=== PATIENT | male | born 1950 | race Caucasian/White ===

== ENCOUNTER 2019-04-10 08:12 | Outpatient (RCR) | payer MEDICARE, MEDICAID ==
--- NOTE | 2019-04-10 10:27 | RADONC ---
RADIATION ONCOLOGY RADIATION ONCOLOGY SIMULATION NOTE DATE OF SERVICE: 04/10/2019 CHART NUMBER: [id number]. SIMULATION NOTE: Mr. Sparks was taken to the CT scan for CT simulation of his prostate field. CT was accomplished without difficulty or discomfort. Radiation treatment planning is underway, and radiation treatments will begin subsequently. An immobilization device was created without difficulty or discomfort. It will be used throughout the course of treatment. I was physically present throughout the course of CT simulation.
[2019-04-10 10:41] LABS: HEMATOCRIT 54.1 % (42.0-52.0); HEMOGLOBIN 17.9 g/dl (13.5-17.5); LYMPH % 29.4 % (24.0-44.0); MEAN CORPUSCULAR HEMOGLOBIN 31.3 pg (27.0-33.0); MEAN CORPUSCULAR HGB CONC 33.1 g/dl (32.0-36.5); MEAN CORPUSCULAR VOLUME 94.7 fl (80.0-96.0); NEUTROPHILS # 4.1 10^3/uL (1.8-7.7); NEUTROPHILS % 58.8 % (36.0-66.0); RED BLOOD COUNT 5.71 10^6/uL (4.30-6.10)
== END 2019-04-13 ==
LOC: M ONCR 08:12
PROVIDERS: ATTEND Radiology Radiation Oncology
DX: C61 Malignant neoplasm of prostate (principal)

== ENCOUNTER 2019-05-11 10:36 | Outpatient (RCR) | payer MEDICARE, MEDICAID ==
--- NOTE | 2019-04-24 06:43 | RADONC ---
RADIATION ONCOLOGY PROGRESS NOTE DATE: 04/23/2019 CHART NUMBER: [id number] Mr. Sparks is presently dose of 540 cGy to his prostate and is tolerating treatments quite well at this point with no complaints related to his radiation therapy. He is having no urinary or bowel difficulties and no bone pain. REVIEW OF SYSTEMS: The patient's review of systems is noncontributory. He denies nausea, vomiting, fevers, chills, night sweats, diplopia, headaches, anxiety or depression, anorexia, weight loss, visual disturbances, chest pain, urinary or bowel difficulties, bone pain or neurological problems. PHYSICAL EXAMINATION: The patient's skin is in good condition with no evidence of radiation change present. There is no moist or dry desquamation. The remainder of his physical exam remains unchanged. Mr. Sparks is tolerating treatments quite well and radiation will continue as scheduled.
--- NOTE | 2019-05-01 10:21 | RADONC ---
RADIATION ONCOLOGY PROGRESS NOTE DATE: 04/30/2019 CHART #: [id number] Mr. Sparks is presently at a dose of 1440 cGy to his prostate and is tolerating treatments quite well at this point with no complaints related to his radiation therapy. He is having no urinary or bowel difficulties and no bone pain. REVIEW OF SYSTEMS: The patient's review of systems is noncontributory. Denies nausea, vomiting, fevers, chills, night sweats, diplopia, headaches, anxiety or depression, anorexia, weight loss, visual disturbances, chest pain, urinary or bowel difficulties, bone pain, or neurological problems. PHYSICAL EXAMINATION: The patient's skin is in good condition with no evidence of moist or dry desquamation. The remainder of his physical examination remains unchanged. Mr. Sparks is tolerating treatments quite well and radiation will continue as scheduled.
--- NOTE | 2019-05-08 10:51 | RADONC ---
RADIATION ONCOLOGY PROGRESS NOTE: DATE: 05/07/2019 CHART NUMBER: [id number] Mr. Sparks is a gentleman with a diagnosis of adenocarcinoma of prostate and his current dose of radiotherapy is 2340 cGy of an anticipated 7920 cGy. Thus far, he seems to be tolerating his radiotherapy reasonably well with the exception of minimal dysuria. REVIEW OF SYSTEMS: He denies any nausea, vomiting, diarrhea, hematuria or blood per rectum. He does experience some minimal amount of dysuria which is not consistent but only sporadic. His energy level is such that he is able to maintain most of his day-to-day activities without any alteration of his lifestyle. He reports no skin irritation. EXAMINATION FINDINGS: He is a well-nourished, well-developed male in no acute distress. Skin: No evidence of erythema and certainly no focal desquamation. The remainder of the physical examination is unchanged. IMPRESSION: Tolerating therapy well. PLAN: Treatments to continue.
== END 2019-05-13 ==
LOC: M ONCR 10:36
PROVIDERS: ATTEND Radiology Radiation Oncology
DX: C61 Malignant neoplasm of prostate (principal)

== ENCOUNTER → 2019-06-13 | Outpatient (RCR) | payer MEDICARE, MEDICAID ==
--- NOTE | 2019-05-14 14:28 | RADONC ---
RADIATION ONCOLOGY PROGRESS NOTE DATE: 05/14/2019 CHART NUMBER: [id number] Mr. Sparks, a gentleman with a diagnosis of adenocarcinoma of prostate, is currently receiving local regional radiotherapy. His dose to date is 3240 cGy of a proposed 7920 cGy. He is complaining of dysuria but denies any other major side effects. REVIEW OF SYSTEMS: He denies any nausea, vomiting, diarrhea, hematuria or blood per rectum. He also complains of a minimal amount of dysuria but this problem was not consistent. Last week we suggested that he takes some Pyridium. He has not taken any yet as he has not picked it up to the drug store. His energy level is such that he is able to maintain most of his day-to-day activities without any alteration of his lifestyle. He reports no skin irritation. EXAMINATION FINDINGS: He is a well-nourished, well-developed male in no acute distress. Skin: No evidence of erythema and certainly no focal desquamation. Lymphatics: No palpable peripheral lymphadenopathy. The remainder of the physical examination is unchanged. IMPRESSION: Tolerating therapy well. PLAN: Treatments to continue. MTDD
--- NOTE | 2019-05-21 12:12 | RADONC ---
RADIATION ONCOLOGY PROGRESS NOTE DATE: 05/21/2019 CHART NUMBER: [id number] PROGRESS NOTE: Mr. Sparks is presently at a dose of 3780 cGy to his prostate and is tolerating treatments quite well at this point with no significant difficulties related to his radiation therapy other than some minimal burning upon urination. REVIEW OF SYSTEMS: The patient's review of systems is positive for his burning urination but is otherwise noncontributory. Denies nausea, vomiting, fevers, chills, night sweats, diplopia, headaches, anxiety or depression, anorexia, weight loss, visual disturbances, chest pain, urinary or bowel difficulties, bone pain, or neurological problems. PHYSICAL EXAMINATION: The patient's skin is in excellent condition with no evidence of moist or dry desquamation. The remainder of his physical exam remains unchanged. Mr. Sparks is tolerating treatments quite well and radiation will continue as scheduled.
--- NOTE | 2019-05-29 08:32 | RADONC ---
RADIATION ONCOLOGY PROGRESS NOTE DATE: 05/28/2019 CHART NUMBER: [id number] Mr. Sparks is presently at a dose of 4680 cGy to his prostate and is tolerating his treatments quite well at this point with no significant difficulties related to his radiation therapy other than some urinary frequency which was alleviated with peridium. The patient's review of systems is basically noncontributory. He denies nausea, vomiting, fevers, chills, night sweats, diplopia, headaches, anxiety or depression, anorexia, weight loss, visual disturbances, chest pain, urinary or bowel difficulties, bone pain, or neurological problems. PHYSICAL EXAMINATION: The patient's skin is in good condition with no evidence of moist or dry desquamation. The remainder of his physical exam remains unchanged. Mr. Sparks is tolerating treatments quite well and radiation will continue as scheduled.
--- NOTE | 2019-06-06 07:15 | RADONC ---
RADIATION ONCOLOGY PROGRESS NOTE DATE: 06/05/2019 CHART #: [id number] Mr. Sparks is presently at a dose of 5580 cGy to his prostate and is tolerating treatments quite well at this point with no complaints related to his radiation therapy. He is having no urinary or bowel difficulties and no bone pain. REVIEW OF SYSTEMS: The patient's review of systems is noncontributory. Denies nausea, vomiting, fevers, chills, night sweats, diplopia, headaches, anxiety or depression, anorexia, weight loss, visual disturbances, chest pain, urinary or bowel difficulties, bone pain, or neurological problems. PHYSICAL EXAMINATION: The patient's skin is in good condition with no evidence of moist or dry desquamation. The remainder of his physical exam remains unchanged. Mr. Sparks is tolerating treatments quite well and radiation will continue as scheduled.
--- NOTE | 2019-06-12 09:13 | RADONC ---
RADIATION ONCOLOGY PROGRESS NOTE DATE: 06/11/2019 CHART #: [id number] Mr. Sparks is presently at a dose of 6480 cGy to his prostate and is tolerating treatments quite well at this point with no complaints related to his radiation therapy. He is having no urinary or bowel difficulties and no bone pain. REVIEW OF SYSTEMS: The patient's review of systems is noncontributory. Denies nausea, vomiting, fevers, chills, night sweats, diplopia, headaches, anxiety or depression, anorexia, weight loss, visual disturbances, chest pain, urinary or bowel difficulties, bone pain, or neurological problems. PHYSICAL EXAMINATION: The patient's skin is in good condition with no evidence of radiation change present. There is no moist or dry desquamation. The remainder of his physical exam remains unchanged. Mr. Sparks is tolerating treatments quite well and radiation will continue as scheduled.
== END ==
LOC: M ONCR 05-14 10:28
PROVIDERS: ATTEND Radiology Radiation Oncology
DX: C61 Malignant neoplasm of prostate (principal)

== ENCOUNTER 2019-06-21 10:35 | Outpatient (RCR) | payer MEDICARE, MEDICAID ==
--- NOTE | 2019-06-18 13:17 | RADONC ---
RADIATION ONCOLOGY PROGRESS NOTE DATE: 06/18/2019 CHART NUMBER: [id number] Mr. Sparks with a diagnosis of adenocarcinoma of the prostate is currently receiving local regional radiotherapy and his dose to date is 7380 cGy of an anticipated 7920 cGy. He is tolerating his therapy reasonably well with no specific complaints. REVIEW OF SYSTEMS: He specifically denies any nausea, vomiting, diarrhea, dysuria, hematuria or blood per rectum. His energy level is excellent and he is able to maintain most day-to-day activities without any significant alteration of his lifestyle. He will be completed with his entire series of treatments in three more fractions. Otherwise the review of systems is unchanged. PHYSICAL EXAMINATION: He is a healthy-appearing male in no acute distress. The skin within the irradiated volume shows neither erythema nor desquamation. Lymphatics no palpable peripheral lymphadenopathy is appreciated. Lungs are clear. The remainder of the physical examination is unchanged. IMPRESSION: Tolerating therapy well. PLAN: Treatments to continue.
--- NOTE | 2019-06-25 09:10 | RADONC ---
RADIATION ONCOLOGY TREATMENT SUMMARY DATE OF SERVICE: 06/21/2019 CHART #: [id number] DIAGNOSIS: Adenocarcinoma, prostate grade group two (3+4) as well as grade one (3+3). Cancer is located in the left lateral, left apex, right lateral base, and right base, right mid and right apex. PSA 4.7. Stage I, [id number], grade group to two (3+4) with 6 of 12 biopsies located on both right and the left. ECOG PERFORMANCE STATUS: 0. SUMMARY: Plan of radiotherapy local regional for local regional definitive control. Date radiotherapy started 04/19/2019, completed 06/21/2019. DOSE: The patient received a total of 7920 cGy administered in 44 fractions over 63 elapsed days. Prior to treatment delivery, localization was accomplished upon our CT simulator and treatment portals defined by the use of multiple leaf collimators. The patient was initially treated to 5400 cGy. Thereafter, a field reduction was performed to treat the remainder of the PTV, i.e. prostate, to an additional 2520 cGy bringing the total dose to the aforementioned 7920 cGy. He was treated at 100 cGy per day isocenter technique via IMRT/IGRT. A 6 MV photon beam was employed for treatment delivery and treatment portals were defined again by the use of multiple leaf collimators. STATUS OF TUMOR: There was no clinical evidence of tumor progression nor clinical evidence of distant metastatic spread during his course of radiotherapy. TOLERANCE: In general, treatments were quite well tolerated as he denied any nausea, vomiting, diarrhea, dysuria, hematuria or blood per rectum. DISPOSITION: Return to clinic in approximately 1 month or p.r.n. and he was advised to return to his referring physicians as per their directions and instructions. Thank you for allowing us the opportunity of participation in the management of this very fine gentleman. cc: MD Jr Omer MD Hardik Patel, MD
== END 2019-07-14 ==
LOC: M ONCR 10:35
PROVIDERS: ATTEND Radiology Radiation Oncology
DX: C61 Malignant neoplasm of prostate (principal)

== ENCOUNTER → 2019-07-18 | Outpatient (CLI) | payer MEDICARE, MEDICAID ==
--- NOTE | 2019-07-19 09:11 | RADONC ---
RADIATION ONCOLOGY FOLLOWUP NOTE DATE: 07/18/2019 CHART NUMBER: [id number] DIAGNOSIS: Adenocarcinoma, prostate grade group 2 (3+4 ) as well as grade group one (3+3). The cancer is located in the left lateral, left apex and right base. PSA 4.7. STAGE: I, [id number]. ECOG PERFORMANCE STATUS: 0 FOLLOWUP NOTE: Mr. Sparks returns today after having completed a course of definitive local regional radiotherapy for his known prostate cancer on 06/21/2019. He returns with very few symptoms or side effects secondary to his disease or to his treatment. He still occasionally has some frequency and urgency but denies nausea, vomiting, diarrhea, dysuria, hematuria or blood per rectum. His energy level is satisfactory and he is able to maintain most day-to-day activities without any alteration of his lifestyle. Skin irritation is denied as is bone pain or other rectal issues. EXAMINATION FINDINGS: The patient is a well-nourished male in no acute distress. HEENT: Normocephalic. EOMs intact. PERRLA. Fundi benign. Lymphatics: No palpable peripheral lymphadenopathy is appreciated. Lungs are clear. Heart: Regular. Abdomen: Without evidence of hepatomegaly, masses or deep abdominal tenderness. Extremities: Without cyanosis, clubbing or edema. Neurologic: Examination grossly physiologic and nonfocal. IMPRESSION: No clinical evidence of disease. Most recent PSA obtained on 07/11/2019 revealed a PSA of 0.90. PLAN: We would like to see him on a p.r.n. basis but have requested that he continue to have his PSAs monitored. He will be seeing his primary care physician Dr. Uvaldo Hutchinson and I have also suggested that he go back to see Dr. Randolph and a repeat PSA will be performed in October. He tells me that they will fax the copy of the PSA to our office. Thank you for allowing us the opportunity of participation in the joint followup care of this fine patient, most sincerely.
== END ==
LOC: M ONCR 10:41
PROVIDERS: ATTEND Radiology Radiation Oncology
DX: C61 Malignant neoplasm of prostate (principal)

== ENCOUNTER → 2022-12-10 | Outpatient (CLI) | payer MEDICARE, MEDICAID | LOC: M RAD 14:48 | PROVIDERS: ATTEND Family Medicine | DX: Z12.2 Encounter for screening for malignant neoplasm of respiratory organs (principal); F17.210 Nicotine dependence, cigarettes, uncomplicated; I70.0 Atherosclerosis of aorta; Z95.1 Presence of aortocoronary bypass graft ==

== ENCOUNTER → 2023-12-13 | Outpatient (CLI) | payer MEDICARE, MEDICAID | LOC: M RAD 16:08 | PROVIDERS: ATTEND Family Medicine | DX: F17.210 Nicotine dependence, cigarettes, uncomplicated (principal) ==

== ENCOUNTER 2024-12-28 09:46 | Emergency (ER) | payer MEDICARE, MEDICAID ==
[~2024-12-28] VITALS: Ht 165.1 cm; Wt 102.7 kg
[2024-12-28 10:53] LABS: KETONE, URINE AUTO RFX NEGATIVE (NEGATIVE); LEUKOCYTE ESTERASE UR AUTO RFX NEGATIVE (NEGATIVE); NITRITE, URINE AUTO RFX NEGATIVE (NEGATIVE); RBC, URINE AUTO RFX 1 /HPF (0-3); SQUAM EPITHELIAL CELL UR AURFX 0 /HPF (0-6); WBC, URINE AUTO RFX 1 /HPF (0-3)
[2024-12-28 12:09] LABS: BASO # 0.1 10^3/uL (0.0-0.2); BASO % 0.8 % (0.0-1.0); EOS # 0.1 10^3/uL (0.0-0.5); EOS % 1.3 % (0.0-3.0); HEMATOCRIT 38.1 % (42.0-52.0); HEMOGLOBIN 12.5 g/dl (13.5-17.5); LYMPH # 1.2 10^3/uL (1.5-5.0); LYMPH % 20.2 % (24.0-44.0); MEAN CORPUSCULAR HEMOGLOBIN 29.9 pg (27.0-33.0); MEAN CORPUSCULAR HGB CONC 32.8 g/dl (32.0-36.5); MEAN CORPUSCULAR VOLUME 91.1 fl (80.0-96.0); MONO # 0.7 10^3/uL (0.0-0.8); MONO % 11.2 % (2.0-8.0); NEUTROPHILS # 4.1 10^3/uL (1.5-8.5); PLATELET COUNT, AUTOMATED 263 10^3/uL (150-450); RED BLOOD COUNT 4.18 10^6/uL (4.30-6.10); WHITE BLOOD COUNT 6.2 10^3/uL (4.0-10.0)
[2024-12-28 12:20] LABS: INR 0.95
[2024-12-28 12:40] LABS: ALBUMIN 3.3 G/DL (3.2-5.2); BILIRUBIN,DIRECT 0.2 MG/DL (<0.4); BILIRUBIN,TOTAL 0.6 MG/DL (0.3-1.2); CALCIUM LEVEL 9.3 MG/DL (8.3-10.6); CREATININE FOR GFR 3.85 MG/DL (0.70-1.30); GLOMERULAR FILTRATION RATE 16.4 (>42); POTASSIUM SERUM 4.7 MMOL/L (3.5-5.1)
[2024-12-28 12:41] LABS: CREATININE,RANDOM URINE 120.5 MG/DL
[2024-12-28 12:44] LABS: FREE T4 1.3 NG/DL (0.89-1.76); THYROID STIMULATING HORMONE 1.504 uIU/ML (0.55-4.78)
[2024-12-28] MEDS ORDERED: ROSU40TA81 PO (14:39)
[2024-12-28] MEDS ORDERED: AMLO1TAB25 PO (14:39)
[2024-12-28] MEDS ORDERED: PANT40TA29 PO (14:39)
[2024-12-28] MEDS ORDERED: ALBU8.5H PO (14:39)
[2024-12-28] MEDS ORDERED: VASC1CAP2 PO (14:39)
[2024-12-28] MEDS ORDERED: ASPI81CH33 PO (14:40)
[2024-12-28] MEDS ORDERED: LORA-1041 PO (14:41)
[2024-12-28] MEDS ORDERED: NOXI1TAB PO (14:41)
[2024-12-28] MEDS: NS (Normal Saline) 0.9% 1,000 ML IV ONE (15:44)
[2024-12-28] MEDS ORDERED: HOME MED LIST COMPLETE! XX SCH (16:05)
[2024-12-28] MEDS: LR 1,000 ML IV ONE ×2 (18:30→20:25)
[2024-12-28 21:51] LABS: CALCIUM LEVEL 8.3 MG/DL (8.3-10.6); CREATININE FOR GFR 3.41 MG/DL (0.70-1.30); GLOMERULAR FILTRATION RATE 18.9 (>42); POTASSIUM SERUM 3.8 MMOL/L (3.5-5.1)
[2024-12-29 04:21] LABS: CALCIUM LEVEL 8.4 MG/DL (8.3-10.6); CREATININE FOR GFR 3.33 MG/DL (0.70-1.30); GLOMERULAR FILTRATION RATE 19.4 (>42); POTASSIUM SERUM 4.4 MMOL/L (3.5-5.1)
[2024-12-29 07:42] VITALS: BP 149/78; TEMP 96.9; O2SAT 97
== END 2024-12-29 07:58 | disposition home or self-care (01) ==
LOC: M ED 09:46
DX: N17.9 Acute kidney failure, unspecified (principal); I25.119 Atherosclerotic heart disease of native coronary artery with unspecified angina pectoris; I25.2 Old myocardial infarction; E11.9 Type 2 diabetes mellitus without complications; I10 Essential (primary) hypertension; J44.9 Chronic obstructive pulmonary disease, unspecified; F17.210 Nicotine dependence, cigarettes, uncomplicated; F10.10 Alcohol abuse, uncomplicated; Z85.46 Personal history of malignant neoplasm of prostate; Z88.8 Allergy status to other drugs, medicaments and biological substances; Z79.51 Long term (current) use of inhaled steroids; Z79.1 Long term (current) use of non-steroidal anti-inflammatories (NSAID); Z79.899 Other long term (current) drug therapy

== ENCOUNTER 2025-01-27 11:39 | Emergency (ER) | payer MEDICARE, MEDICAID ==
[~2025-01-27] VITALS: Ht 165.1 cm; Wt 104.2 kg
[~2025-01-27 11:39] MED LIST: ALBU8.5H PO; AMLO1TAB25 PO; ASPI81CH33 PO; LORA-1041 PO; NOXI1TAB PO; PANT40TA29 PO; ROSU40TA81 PO; VASC1CAP2 PO
[2025-01-27 11:46] VITALS: BP 162/74; TEMP 98; O2SAT 95
[2025-01-27 12:35] LABS: BASO # 0.1 10^3/uL (0.0-0.2); EOS # 0.2 10^3/uL (0.0-0.5); EOS % 2.9 % (0.0-3.0); HEMATOCRIT 36.7 % (42.0-52.0); HEMOGLOBIN 12.3 g/dl (13.5-17.5); LYMPH # 1.7 10^3/uL (1.5-5.0); LYMPH % 24.2 % (24.0-44.0); MEAN CORPUSCULAR HEMOGLOBIN 29.9 pg (27.0-33.0); MEAN CORPUSCULAR HGB CONC 33.5 g/dl (32.0-36.5); MEAN CORPUSCULAR VOLUME 89.3 fl (80.0-96.0); MONO # 0.7 10^3/uL (0.0-0.8); MONO % 9.6 % (2.0-8.0); NEUTROPHILS # 4.3 10^3/uL (1.5-8.5); NEUTROPHILS % 61.7 % (36.0-66.0); PLATELET COUNT, AUTOMATED 236 10^3/uL (150-450); RED BLOOD COUNT 4.11 10^6/uL (4.30-6.10)
[2025-01-27 13:08] LABS: ALBUMIN 3.5 G/DL (3.2-5.2); ALKALINE PHOSPHATASE 83 U/L (40-129); ALT/SGPT 26 U/L (7.0-40); AST/SGOT 24 U/L (<34); BILIRUBIN,DIRECT 0.1 MG/DL (<0.4); BILIRUBIN,TOTAL 0.4 MG/DL (0.3-1.2); BLOOD UREA NITROGEN 14 MG/DL (9-23); CALCIUM LEVEL 9.1 MG/DL (8.3-10.6); CARBON DIOXIDE LEVEL 27 MMOL/L (20-31); CHLORIDE LEVEL 105 MMOL/L (98-107); CREATININE FOR GFR 1.22 MG/DL (0.70-1.30); GLOMERULAR FILTRATION RATE > 60.0 (>42); GLUCOSE, FASTING 112 MG/DL (74-106); POTASSIUM SERUM 4.5 MMOL/L (3.5-5.1); SODIUM LEVEL 140 MMOL/L (136-145); TOTAL PROTEIN 6.7 G/DL (5.7-8.2)
== END 2025-01-27 15:03 | disposition home or self-care (01) ==
LOC: M ED 11:39
DX: K80.20 Calculus of gallbladder without cholecystitis without obstruction (principal); I25.119 Atherosclerotic heart disease of native coronary artery with unspecified angina pectoris; I25.2 Old myocardial infarction; E11.9 Type 2 diabetes mellitus without complications; I10 Essential (primary) hypertension; J44.9 Chronic obstructive pulmonary disease, unspecified; Z87.891 Personal history of nicotine dependence; Z88.8 Allergy status to other drugs, medicaments and biological substances; Z79.1 Long term (current) use of non-steroidal anti-inflammatories (NSAID); Z79.51 Long term (current) use of inhaled steroids; Z79.899 Other long term (current) drug therapy

== ENCOUNTER 2025-02-02 17:46 | Emergency (ER) | payer MEDICARE, MEDICAID ==
[~2025-02-02] VITALS: Ht 165.1 cm; Wt 104.7 kg
[2025-02-03] MEDS: **hydrALAZINE** 10 MG TAB PO ONE (01:35)
[2025-02-03 02:32] LABS: BASO % 0.6 % (0.0-1.0); EOS # 0.2 10^3/uL (0.0-0.5); EOS % 3.2 % (0.0-3.0); HEMATOCRIT 36.2 % (42.0-52.0); HEMOGLOBIN 12.2 g/dl (13.5-17.5); LYMPH # 1.9 10^3/uL (1.5-5.0); LYMPH % 28.4 % (24.0-44.0); MEAN CORPUSCULAR HEMOGLOBIN 30.7 pg (27.0-33.0); MEAN CORPUSCULAR HGB CONC 33.7 g/dl (32.0-36.5); MEAN CORPUSCULAR VOLUME 91.2 fl (80.0-96.0); MONO # 0.7 10^3/uL (0.0-0.8); MONO % 10.5 % (2.0-8.0); NEUTROPHILS # 3.9 10^3/uL (1.5-8.5); PLATELET COUNT, AUTOMATED 206 10^3/uL (150-450); RED BLOOD COUNT 3.97 10^6/uL (4.30-6.10); WHITE BLOOD COUNT 6.8 10^3/uL (4.0-10.0)
[2025-02-03 02:56] LABS: LIPASE 40 U/L (12-53)
[2025-02-03 02:57] LABS: AMYLASE 83 U/L (30-118)
[2025-02-03 02:58] LABS: ALBUMIN 3.7 G/DL (3.2-5.2); ALKALINE PHOSPHATASE 83 U/L (40-129); ALT/SGPT 26 U/L (7.0-40); AST/SGOT 22 U/L (<34); BILIRUBIN,DIRECT 0.2 MG/DL (<0.4); BILIRUBIN,TOTAL 0.4 MG/DL (0.3-1.2); BLOOD UREA NITROGEN 15 MG/DL (9-23); CALCIUM LEVEL 9.2 MG/DL (8.3-10.6); CARBON DIOXIDE LEVEL 29 MMOL/L (20-31); CHLORIDE LEVEL 105 MMOL/L (98-107); CREATININE FOR GFR 1.19 MG/DL (0.70-1.30); GLOMERULAR FILTRATION RATE > 60.0 (>42); GLUCOSE, FASTING 110 MG/DL (74-106); MAGNESIUM LEVEL 1.9 MG/DL (1.8-2.4); SODIUM LEVEL 142 MMOL/L (136-145); TOTAL PROTEIN 6.8 G/DL (5.7-8.2)
[2025-02-03 04:48] VITALS: BP 163/74
[2025-02-03] MEDS: hydrALAZINE 20MG/ML 1ML VIAL IV STA (04:48)
[2025-02-03 06:21] VITALS: BP 161/76; TEMP 97.7; O2SAT 100
== END 2025-02-03 07:26 | disposition home or self-care (01) ==
LOC: M ED 17:46
DX: Z93.4 Other artificial openings of gastrointestinal tract status (principal); E11.9 Type 2 diabetes mellitus without complications; I11.0 Hypertensive heart disease with heart failure; I50.22 Chronic systolic (congestive) heart failure; I25.119 Atherosclerotic heart disease of native coronary artery with unspecified angina pectoris; I25.2 Old myocardial infarction; E78.5 Hyperlipidemia, unspecified; Z88.8 Allergy status to other drugs, medicaments and biological substances; Z79.1 Long term (current) use of non-steroidal anti-inflammatories (NSAID); Z79.51 Long term (current) use of inhaled steroids; Z79.899 Other long term (current) drug therapy
CPT/HCPCS: 74176; 80048; 80076; 82150; 83690; 83735; 85025; 96374; 99284; J0360

== ENCOUNTER → 2025-02-06 | Outpatient (CLI) | payer MEDICARE, MEDICAID ==
[2025-02-06 11:25] VITALS: TEMP 97.5
[2025-02-06] MEDS: LIDOCAINE 1% MDV 20ML VIAL SC ONE (11:30)
[2025-02-06] MEDS: ISOVUE-300 61% 100ML VIAL IV ONE (12:28)
[2025-02-06 12:45] VITALS: BP 181/86; O2SAT 99
== END ==
LOC: M IRPRO 11:12
PROVIDERS: ATTEND Radiology Diagnostic Radiology
DX: K81.9 Cholecystitis, unspecified (principal)
CPT/HCPCS: 49424; 76080; Q9967

== ENCOUNTER → 2025-02-20 | Outpatient (CLI) | payer MEDICARE, MEDICAID ==
[~2025-02-20] MED LIST changes: +HYDR-3713 PO
[2025-02-20 11:30] VITALS: BP 154/71; TEMP 97.7; O2SAT 96
[2025-02-20] MEDS: ISOVUE-300 61% 100ML VIAL IV ONE (12:17)
[2025-02-20] MEDS: LIDOCAINE 1% MDV 20ML VIAL SC ONE (12:18)
== END ==
LOC: M IRPRO 11:28
PROVIDERS: ATTEND Radiology Diagnostic Radiology
DX: T85.590A Other mechanical complication of bile duct prosthesis, initial encounter (principal); K81.9 Cholecystitis, unspecified
CPT/HCPCS: 49423; 75984; C1729; Q9967

== ENCOUNTER 2025-05-20 08:29 | Inpatient (IN) | payer MEDICARE, MEDICAID ==
[2025-05-20] VITALS (7 sets, daily range): BP systolic 150–180; BP diastolic 75–82; TEMP 97–98; O2SAT 92–96
[~2025-05-20] VITALS: Ht 165.1 cm; Wt 105.6 kg
[~2025-05-20 08:29] MED LIST changes: +CARV12.5 PO; +CLAR10CA3 PO; +FURO20TA2 PO; +JARD1TAB PO; +LISI2.5T9 PO; +METO1TAB87 PO
[2025-05-20] MEDS: INDOCYANINE GREEN 25 MG VIAL IV ONE (10:24)
[2025-05-20] MEDS: ceFAZolin SOD 2 GM IV ONCE IV ONE (10:26)
[2025-05-20] MEDS ORDERED: dexAMETHasone 4 MG/ML 1 ML VIAL As Ordered ONE (10:44)
[2025-05-20] MEDS ORDERED: ROCURONIUM BROMIDE 50MG/5ML VIAL As Ordered ONE (10:44)
[2025-05-20] MEDS ORDERED: dexmedeTOMIDine (4 MCG/ML) 200 MCG/50 ML BTL As Ordered ONE (10:44)
[2025-05-20] MEDS ORDERED: ACETAMINOPHEN 1000MG/100ML IV BAG As Ordered ONE (10:44)
[2025-05-20] MEDS ORDERED: INDOCYANINE GREEN 25 MG VIAL As Ordered ONE (10:44)
[2025-05-20] MEDS ORDERED: ONDANSETRON 4MG 2ML VIAL As Ordered ONE (10:44)
[2025-05-20] MEDS ORDERED: KETOROLAC 30 MG/ML 1 ML VIAL As Ordered ONE (10:44)
[2025-05-20] MEDS ORDERED: LIDOCAINE 2% 100 MG/5 ML SDV (FOR ANES.) As Ordered ONE (10:44)
[2025-05-20] MEDS ORDERED: MIDAZOLAM INJ 2 MG/2 ML VIAL As Ordered ONE (10:44)
[2025-05-20] MEDS ORDERED: SUGAMMADEX SODIUM 500 MG/5 ML VIAL As Ordered ONE (10:44)
[2025-05-20] MEDS ORDERED: ISOVUE-300 61% 100 ML VIAL As Ordered ONE (13:01)
[2025-05-20] MEDS ORDERED: MORPHINE 2 MG/ML 1 ML VIAL IV PRN (14:20)
[2025-05-20] MEDS ORDERED: ONDANSETRON 4MG 2ML VIAL IV PRN (14:20)
[2025-05-20 15:49] LABS: BASO # 0.0 10^3/uL (0.0-0.2); BASO % 0.3 % (0.0-1.0); EOS # 0.0 10^3/uL (0.0-0.5); EOS % 0.1 % (0.0-3.0); LYMPH # 0.6 10^3/uL (1.5-5.0); LYMPH % 8.1 % (24.0-44.0); MONO # 0.1 10^3/uL (0.0-0.8); MONO % 1.3 % (2.0-8.0); NEUTROPHILS # 7.0 10^3/uL (1.5-8.5); NEUTROPHILS % 89.7 % (36.0-66.0); PLATELET COUNT, AUTOMATED 191 10^3/uL (150-450)
[2025-05-20] MEDS: LR 1,000 ML IV SCH (15:57)
[2025-05-20] MEDS ORDERED: GLUCAGON INJ 1 MG VIAL SC PRN (16:10)
[2025-05-20] MEDS ORDERED: ALBUTEROL 90 MCG/ACT 8 GM HFA INHALER INH PRN (16:10)
[2025-05-20] MEDS ORDERED: GLUCOSE 4 GM CHEW PO PRN (16:10)
[2025-05-20] MEDS ORDERED: DEXTROSE 50% 50 ML SYRINGE IV PRN (16:10)
[2025-05-20 16:18] LABS: ALT/SGPT 30.0 U/L (7.0-40); AST/SGOT 39.0 U/L (<34); CALCIUM LEVEL 8.8 MG/DL (8.3-10.6); CARBON DIOXIDE LEVEL 28.0 MMOL/L (20-31); CHLORIDE LEVEL 105.0 MMOL/L (98-107); CREATININE FOR GFR 1.15 MG/DL (0.70-1.30); GLOMERULAR FILTRATION RATE 66.8 (>42); POTASSIUM SERUM 4.4 MMOL/L (3.5-5.1); SODIUM LEVEL 142.0 MMOL/L (136-145)
[2025-05-20] MEDS ORDERED: HOME MED LIST COMPLETE! XX SCH (17:10)
[2025-05-20] MEDS: INSULIN LISPRO (NovoLOG) PER UNIT SC SCH (17:40)
[2025-05-20] MEDS: NS (Normal Saline) 0.9% 1,000 ML IV SCH (18:43)
[2025-05-20] MEDS: MORPHINE 2 MG/ML 1 ML VIAL IV PRN (22:38)
[2025-05-21] VITALS (19 sets, daily range): BP systolic 120–144; BP diastolic 60–80; TEMP 97.5–98.1; O2SAT 93–98
[2025-05-21 06:10] LABS: ALT/SGPT 26.0 U/L (7.0-40); AST/SGOT 33.0 U/L (<34); CALCIUM LEVEL 8.7 MG/DL (8.3-10.6); CARBON DIOXIDE LEVEL 26.0 MMOL/L (20-31); CHLORIDE LEVEL 105.0 MMOL/L (98-107); CREATININE FOR GFR 1.12 MG/DL (0.70-1.30); GLOMERULAR FILTRATION RATE 68.9 (>42); MAGNESIUM LEVEL 1.8 MG/DL (1.8-2.4); POTASSIUM SERUM 4.5 MMOL/L (3.5-5.1); SODIUM LEVEL 140.0 MMOL/L (136-145)
[2025-05-21] MEDS ORDERED: GASTROGRAFIN SOLUTION 30 ML As Ordered ONE (07:53)
[2025-05-21] MEDS: ROSUVASTATIN 10 MG TAB PO SCH (11:14)
[2025-05-21] MEDS: LISINOPRIL 2.5 MG TAB PO SCH (11:15)
[2025-05-21] MEDS: PANTOPRAZOLE 40MG TAB PO SCH (11:15)
[2025-05-21] MEDS: FUROSEMIDE 20 MG TAB PO SCH (11:15)
[2025-05-22] VITALS (13 sets, daily range): BP systolic 118–147; BP diastolic 62–70; TEMP 97.8–98.5; O2SAT 90–95
[2025-05-22] MEDS ORDERED: LOPERAMIDE 2 MG CAPLET PO ONE (11:00)
[2025-05-22] MEDS: INSULIN LISPRO (NovoLOG) PER UNIT SC SCH ×2 (12:00→21:00)
[2025-05-23 05:22] VITALS: BP 141/64; TEMP 98.5; O2SAT 95
[2025-05-23 08:03] VITALS: BP 127/60; TEMP 98.5; O2SAT 90
[2025-05-23] MEDS: MORPHINE 2 MG/ML 1 ML VIAL IV PRN (08:58)
[2025-05-23 09:00] VITALS: BP 127/60
[2025-05-23 09:25] LABS: BASO # 0.1 10^3/uL (0.0-0.2); BASO % 0.7 % (0.0-1.0); EOS # 0.1 10^3/uL (0.0-0.5); EOS % 0.9 % (0.0-3.0); LYMPH # 0.9 10^3/uL (1.5-5.0); LYMPH % 10.6 % (24.0-44.0); MONO # 1.0 10^3/uL (0.0-0.8); MONO % 11.2 % (2.0-8.0); NEUTROPHILS # 6.5 10^3/uL (1.5-8.5); NEUTROPHILS % 76.2 % (36.0-66.0); PLATELET COUNT, AUTOMATED 187 10^3/uL (150-450)
[2025-05-23 10:05] LABS: ALT/SGPT 26.0 U/L (7.0-40); AST/SGOT 27.0 U/L (<34); CALCIUM LEVEL 8.6 MG/DL (8.3-10.6); CARBON DIOXIDE LEVEL 29.0 MMOL/L (20-31); CHLORIDE LEVEL 102.0 MMOL/L (98-107); CREATININE FOR GFR 1.15 MG/DL (0.70-1.30); GLOMERULAR FILTRATION RATE 66.8 (>42); POTASSIUM SERUM 3.4 MMOL/L (3.5-5.1); SODIUM LEVEL 140.0 MMOL/L (136-145)
[2025-05-23] MEDS: POTASSIUM CHLORIDE 10MEQ SR TABLET PO ONE (11:57)
[2025-05-23 12:42] VITALS: BP 149/69; TEMP 98.7; O2SAT 92
[2025-05-24] MEDS ORDERED: HYDR-3713 PO (08:54)
== END 2025-05-23 18:20 | disposition home or self-care (01) | DRG 418 ==
LOC: M SDC 08:29 → M RR INP 08:30 → M PCU 15:27 → OBSVTOIN 05-21 15:06 → M MS4PR 05-22 15:46
PROVIDERS: ADMIT Student in an Organized Health Care Education/Training Program; ATTEND Student in an Organized Health Care Education/Training Program
PROC: 0DQ94ZZ Repair Duodenum, Percutaneous Endoscopic Approach (ICD-10-PCS; 2025-05-20)
PROC: 0DNU4ZZ Release Omentum, Percutaneous Endoscopic Approach (ICD-10-PCS; 2025-05-20)
PROC: 8E0W4CZ Robotic Assisted Procedure of Trunk Region, Percutaneous Endoscopic Approach (ICD-10-PCS; 2025-05-20)
PROC: 0FT44ZZ Resection of Gallbladder, Percutaneous Endoscopic Approach (ICD-10-PCS; principal; 2025-05-20 11:45)
PROC: BD19YZZ Fluoroscopy of Duodenum using Other Contrast (ICD-10-PCS; 2025-05-21)
DX: K80.10 Calculus of gallbladder with chronic cholecystitis without obstruction (principal); I50.22 Chronic systolic (congestive) heart failure; K82.3 Fistula of gallbladder; I25.10 Atherosclerotic heart disease of native coronary artery without angina pectoris; I25.2 Old myocardial infarction; Z95.5 Presence of coronary angioplasty implant and graft; R00.1 Bradycardia, unspecified; K21.9 Gastro-esophageal reflux disease without esophagitis; J44.9 Chronic obstructive pulmonary disease, unspecified; K66.0 Peritoneal adhesions (postprocedural) (postinfection); E88.09 Other disorders of plasma-protein metabolism, not elsewhere classified; E87.6 Hypokalemia; I48.91 Unspecified atrial fibrillation; E11.9 Type 2 diabetes mellitus without complications; E66.9 Obesity, unspecified; G47.33 Obstructive sleep apnea (adult) (pediatric); I11.0 Hypertensive heart disease with heart failure; F17.200 Nicotine dependence, unspecified, uncomplicated; Z71.6 Tobacco abuse counseling; Z79.82 Long term (current) use of aspirin; Z79.899 Other long term (current) drug therapy; Z88.1 Allergy status to other antibiotic agents; Z88.8 Allergy status to other drugs, medicaments and biological substances; Z68.38 Body mass index [BMI] 38.0-38.9, adult; R19.7 Diarrhea, unspecified; T50.8X5A Adverse effect of diagnostic agents, initial encounter